=== PATIENT | male | born 1945 | race Caucasian/White ===

== ENCOUNTER 2024-05-03 09:53 | Emergency (ER) | payer MEDICARE, SELFPAY ==
--- NOTE | ~2024-05-03 | XR_ITS ---
CHEST RADIOGRAPH, PA AND LATERAL CLINICAL HISTORY: SOB,RECENT PNEUMONIA, SMOKER . COMPARISON: None available TECHNIQUE: PA and lateral views of the chest. FINDINGS The cardiomediastinal silhouette is unremarkable. Severe emphysematous disease is identified with a paucity of lung markings in the periphery and bilat eral lower lobes. No pneumothorax is appreciated. No focal infiltrate is present. Biapical scarring, right greater than left. IMPRESSION: Biapical scarring with severe emphysematous disease for which further evaluation with cross-sectional imaging would provide additional information, if the patient is clinically able (noncontrast CT exam ination of the chest) Reviewed, dictated and finalized at location A. OR VICE PRESIDENT AND CHIEF INFORMATION OFFICER IMPRESSION: Biapical scarring with severe emphysematous disease for which further evaluatio n with cross-sectional imaging would provide additional information, if the pat ient is clinically able (noncontrast CT examination of the chest)
--- NOTE | ~2024-05-03 | CT_ITS ---
EXAMINATION: CT diagnostic chest wo con DATE: 05/03/2024 13:28 INDICATION: scarring TECHNIQUE: Computed tomography (CT) of the chest was performed without intravenous contrast. Addition al 3D reconstructions utilizing coronal maximum intensity projection (MIP) were performed. Automated exposure control and iterative reconstruction technique were employed. The dose-length product was 16 2.87 mGy-cm. COMPARISON: None FINDINGS: Mild emphysema with mild biapical pleural-parenchymal scarring. Calcite pulmonary nodules in the left upper lobe and right lower lobe along with calcified right hilar lymph nodes consistent with old gra nulomatous disease. There are also a multiple scattered bilateral <4 mm pulmonary nodules predominant ly in the upper lobes. No pneumonia, pulmonary edema, pleural effusion or pneumothorax. Heart size is normal. Atherosclerotic coronary artery calcification. No pericardial effusion. Thoracic aorta is no rmal in caliber. No pathologically enlarged thoracic lymphadenopathy. Visualized upper abdomen is unr emarkable. Moderate thoracic spondylosis. IMPRESSION: 1. Mild emphysema with multiple scattered <4 mm pulmonary nodules which are most likely sequela of ol d granulomatous disease. Optional follow-up chest CT could be considered at 12 months. Reviewed, dictated and finalized at location L. L MOLDER IMPRESSION: 1. Mild emphysema with multiple scattered <4 mm pulmonary nodules which are mos t likely sequela of old granulomatous disease. Optional follow-up chest CT coul d be considered at 12 months.
[2024-05-03 10:30] VITALS: BP 173/82; PULSE 102; RESP 16; TEMP 36.8; O2SAT 98
[2024-05-03 11:44] VITALS: BP 184/95; PULSE 84; RESP 16; TEMP 36.4; O2SAT 100
[2024-05-03 12:01] VITALS: O2SAT 100
--- NOTE | 2024-05-03 12:11 | ECG_ITS ---
Test Date: 2024-05-03 12:29:50 Measurements Intervals [place] Rate: 86 P: 92 ME: 177 QRS: 69 QRSD: 81 T: 82 QT: 343 QTc: 412 Interpretive Statements SINUS RHYTHM WITH SINUS ARRHYTHMIA RIGHT ATRIAL ENLARGEMENT [0.3mV P WAVE] POSSIBLE LEFT ATRIAL ENLARGEMENT [-0.1mV P WAVE IN V1/V2] No previous ECG available for comparison Electronically Signed On 05-03-2024 14:10:32 OPENSTACK DEVELOPER by Theron Johansen M.D.
--- NOTE | 2024-05-03 12:13 | ED_ITS ---
HPI - SOB/Dyspnea General Chief Complaint: Shortness of Breath/Dyspnea Stated Complaint: recent pna, SOB Time Seen by Provider: 05/03/24 12:07 History of Present Illness HPI Narrative: Pt presents with SOB for a couple of days. Pt had pneumonia in February and got better but now more SOB. No fever positive cough. No CP. Related Data Allergies Allergy/AdvReac Type Severity Reaction Status Date / Time No Known Allergies Allergy Verified 05/03/24 09:54 Review of Systems 2 Review of Systems: All systems reviewed & are unremarkable except as noted in HPI and below Exam 2 Const: General: healthy appearing and no acute distress Nutritional Appearance: well nourished Orientation/consciousness: patient oriented x3 Limitations: no limitations HENMT: Head: normal to inspection Eyes: Pupils: Equal, round and reactive pupils present EOM: EOMs intact bilaterally Chest: Chest palpation & inspection: normal inspection of the chest Resp: Effort & Inspection: normal respiratory effort Auscultation: clear to auscultation bilaterally Cardio: Rate: regular rate Rhythm: regular rhythm GI: GI Palp: Yes Soft to palpation and No Tenderness to palpation present (GI) Auscultation: normal bowel sounds Skin: General skin exam: normal color Rashes: no rashes Wounds: no wounds Neuro: General: patient oriented x3, moves all extremities, no meningeal signs, no focal motor deficits and CN's II-XI intact bilaterally Speech: n ormal speech Extrem: General: normal to inspection and no clubbing, cyanosis or edema Psych: Mental Status: mental status grossly normal Affect: normal affect Attitude: cooperative Course Vital Signs Vital signs: Vital Signs Temperature 98.2 F 05/03/24 10:30 Pulse Rate 102 H 05/03/24 10:30 Respiratory Rate 16 05/03/24 10:30 Blood Pressure 173/82 H 05/03/24 10:30 Pulse Oximetry 98 05/03/24 10:30 Oxygen Delivery Room Air 05/03/24 10:30 Temperature 97.5 F L 05/03/24 11:44 Pulse Rate 88 05/03/24 12:45 Respiratory Rate 19 05/03/24 12:45 Blood Pressure 155/86 H 05/03/24 12:45 Pulse Oximetry 97 05/03/24 12:45 Oxygen Delivery Room Air 05/03/24 12:01 MDM - SOB/Dyspnea MDM Narrative Medical decision making narrative: Pt present with SOB for 2 days after pneumonia a col months ago. hua need to rule out acs and pneumonia again with ekg labs and cxr doubt PE could be copd exac. will give neb and solumedrol as well. Pt feels better after neb. labs and trop neg, cxr has some scarring and ct of chest confirms this but nothing acute. home on steroids aned z apck Lab Data 05/03/24 12:40 05/03/24 12:40 Labs: Lab Results 05/03/24 Range/Units 12:40 WBC 8.8 (4.5-10.0) K/mm3 RBC 5.02 (4.6-6.20) M/mm3 Hgb 15.1 (14.0-18.0) g/dL Hct 46.7 (42.0-52.0) % MCV 93.0 (80-100) fl MCH 30.1 (26-34) pg MCHC 32.3 (32-36) g/dl RDW 13.5 (11.5-14.5) % Plt Count 298 (150-375) k/mm3 MPV 8.6 (7.4-10.4) fl Immature Gran % (Auto) 0.3 (0-0.5) % Neut % (Auto) 83.3 H (45.5-73.1) % Lymph % (Auto) 7.6 L (18.3-44.2) % [place] % (Auto) 7.6 (2.6-8.5) % Eos % (Auto) 0.6 (0-4.4) % Baso % (Auto) 0.6 (0.2-1.2) % Lymph # (Auto) 0.67 L (0.9-3.2) K/mm3 [place] # (Auto) 0.7 H (0.1-0.6) K/mm3 Eos # (Auto) 0.1 (0-0.3) K/mm3 Baso # (Auto) 0.1 (0.0-0.1) K/mm3 Abs Immat Gran (auto) 0.03 (0.00-0.031) K/mm3 Absolute Neuts (auto) 7.4 H (1.3-6.7) K/mm3 Absolute Nucleated RBC 0.000 (0.0-0.012) K/mm3 Nucleated RBC % 0.0 (0.0-0.2) % PT 13.6 (11.1-14.7) Seconds INR 1.0 APTT 31.0 (22.3-36.8) Seconds Sodium 143 (137-145) mmol/L Potassium 3.9 (3.4-5.0) mmol/L Chloride 102 (98-107) mmol/L Carbon Dioxide 34 H (22-30) mmol/L Anion Gap 7 (4-12) mmol/L BUN 26 H (9-20) mg/dL Creatinine 1.11 (0.7-1.3) mg/dL Estim Creat Clear Calc 43 ml/min Estimated GFR > 60 (59 - ) Glucose 106 (65-110) mg/dL Calcium 9.6 (8.4-10.2) mg/dL Magnesium 2.3 (1.6-2.3) mg/dL Total Bilirubin 0.5 (0.2-1.3) mg/dL AST 31 (17-59) U/L ALT 23 (6-50) U/L Alkaline Phosphatase 69 (38-126) U/L Troponin I < 0.012 (0.000-0.034) ng/mL NT-Pro-B Natriuret Pep 246 H (19.9-100) pg/mL Total Protein 8.0 (6.3-8.2) g/dL Albumin 4.3 (3.5-5.1) g/dL Discharge Plan Discharge Clinical Impression: COPD exacerbation Patient Disposition: Home, Self-Care Condition: Improved Instructions: Antibiotic Form, COPD (Chronic Obstructive Pulmonary Disease) (DC) Patient Language: [place] Prescriptions: New prednisone 50 mg tablet 50 mg PO DAILY Qty: 5 0RF azithromycin [Zithromax] 250 mg tablet See Rx Instructions .ROUTE .COMPLEX Qty: 6 0RF Rx Instructions: For 250 mg dose pack: take 500 mg today (day 1), then 250 mg for 4 days (days 2-5) Follow-up/Referrals: PHYSICIAN NOT ON STAFF,NONSTAFF [Non-Staff] -
[2024-05-03] MEDS: methylPREDNISolone SOD SUCC 125 MG VIAL IV PUSH (12:30)
[2024-05-03] MEDS: IPRATROPIUM 0.5 MG/ALBUTEROL SULFATE 2.5 MG AMPUL.NEB 3 ML INHALATION ×3 (12:42)
[2024-05-03 12:43] VITALS: PULSE 85; RESP 20
[2024-05-03 12:45] VITALS: BP 155/86; PULSE 88; RESP 19; O2SAT 97
[2024-05-03 12:48] LABS: Basophils Absolute Auto 0.1 K/mm3 (0.0-0.1); Basophils Percent Auto 0.6 % (0.2-1.2); Eosinophils Absolute Auto 0.1 K/mm3 (0-0.3); Eosinophils Percent Auto 0.6 % (0-4.4); Hematocrit 46.7 % (42.0-52.0); Hemoglobin 15.1 g/dL (14.0-18.0); Immature Granulocyte Absolute 0.03 K/mm3 (0.00-0.031); Immature Granulocyte Percent A 0.3 % (0-0.5); Lymphocytes Absolute Auto 0.67 K/mm3 (0.9-3.2); Lymphocytes Percent Auto 7.6 % (18.3-44.2); Mean Corpuscular HGB Conc 32.3 g/dl (32-36); Mean Corpuscular Hemoglobin 30.1 pg (26-34); Mean Platelet Volume 8.6 fl (7.4-10.4); Monocytes Absolute Auto 0.7 K/mm3 (0.1-0.6); Monocytes Percent Auto 7.6 % (2.6-8.5); Neutrophils Absolute Auto 7.4 K/mm3 (1.3-6.7); Neutrophils Percent Auto 83.3 % (45.5-73.1); Platelet Count Result 298 k/mm3 (150-375); Red Blood Count 5.02 M/mm3 (4.6-6.20); Red Cell Distribution Width 13.5 % (11.5-14.5); White Blood Count 8.8 K/mm3 (4.5-10.0)
[2024-05-03 12:57] LABS: Prothrombin Time 13.6 Seconds (11.1-14.7)
[2024-05-03 13:11] LABS: Alanine Aminotransferase 23 U/L (6-50); Albumin Level 4.3 g/dL (3.5-5.1); Alkaline Phosphatase 69 U/L (38-126); Anion Gap 7 mmol/L (4-12); Aspartate Amino Transferase 31 U/L (17-59); Bilirubin,Total 0.5 mg/dL (0.2-1.3); Blood Urea Nitrogen 26 mg/dL (9-20); Calcium 9.6 mg/dL (8.4-10.2); Carbon Dioxide 34 mmol/L (22-30); Chloride 102 mmol/L (98-107); Estimated CRCL calculation 43 ml/min; Estimated Glomerular Filt Rate > 60; Glucose 106 mg/dL (65-110); Magnesium 2.3 mg/dL (1.6-2.3); NT Pro B Type Natriuretic Pept 246 pg/mL (19.9-100); Potassium 3.9 mmol/L (3.4-5.0); Sodium 143 mmol/L (137-145)
[2024-05-03 13:12] LABS: Troponin I < 0.012 ng/mL (0.000-0.034)
--- OUTSIDE RECORDS SUMMARY | 2024-05-03 14:53 | XMS_ITS ---
Author Organization [facility] A Address [address] [address] Care Team Providers Care Fashion Merchandiser Name Role Phone Magalys Fernando Primary Care Provider Unavailabl e JAY AZUL Unavailable [phone] Martínez Ramires Unavailable Unavailable Encounters Encounter Location Date Provider Diagnosis [facility] [address] [place] [phone] 04/06/2024 JAY AZUL PLAN OF TREATMENT No Information Progress Notes * BRIGIDA HILLDOB: 5 (78 yo M)Acc No.[id number]:04/06/2024 Patient: HILLBRIGIDA :1945 Age:78 Y Sex:Male Address:[address] [place] [address], [phone] * true * Date:
--- OUTSIDE RECORDS SUMMARY | 2024-05-03 14:54 | XMS_ITS ---
Author Organization [facility] Address [address] [address] Care Team Providers Care Freight Car Loader Name Role Phone Kassie Magalys Primary Care Provider UnavailJAY Zamora Unavailable [phone] Martínez Ramires Unavailable Unavailable REASON FOR VISIT Follow up Dementia MEDICATIONS Medication SIG (Take, Route, Frequency, Duration) Notes Start Date End Date Status Albuterol Sulfate HFA 108 (90 Base) MCG/ACT INHALE 2 PUFFS BY MOUTH EVERY 4 HOURS NEEDED Inhalation Active LORazepam 0.5 MG 1 tablet at bedtime as needed Orally Once a day for 14 day(s) Active amLODIPine Besylate 2.5 MG Oral Active Vitamin D-3 25 MCG (1000 UT) 1 capsule Orally once a week for 30 day(s) Active C68-Ioneuh 1 MG as directed Orally Active Tamsulosin HCl 0.4 MG Oral Once a day fo r 90 Days Active VITAL SIGNS Height 5 ft 11 in in 04/10/2024 Heart Rate 92 /min 04/10/2024 Respiratory Rate 18 /min 04/10/2024 Temperature 97.4 degrees Fahrenheit 04/10/19 25 Oximetry 98 % 04/10/2024 Blood pressure systolic 136 mm Hg 04/10/19 25 Blood pressure diastolic 70 mm Hg 025 Encounters Encounter Location Date Provider Diagnosis [facility] [address] [facility] [address] 04/10/2024 JAY AZUL Dementia F03.90 and Encounter for palliative care Z51.5 ASSESSMENTS Encounter Date Diagnosis Assessment Notes Treatment Notes Treatment Clinical Notes Section Notes 04/10/2024 Dementia (ICD-10 - F03.90) Continue to monitor for decline in cognitive status and functional status. FAST 5 04/10/2024 Encounter for palliative care (ICD-10 - Z51.5) PPS 40% Full code Continue palliative care and monitoring for change of status and appropriateness for hospice services. Nurse practitioner to follow up in 1 month and PRN. PLAN OF TREATMENT Medication Medication Name Sig Start Date Stop Date Notes LORazepam 0.5 MG 1 tablet at bedtime as needed Orally Once a day for 14 day(s) Treatment Notes Assessment Notes Dementia Continue to monitor for decline in cognitive status and functional status. FAST 5 Encounter for palliative care PPS 40% Full code Continue palliative care and monitoring for change of status and appropriateness for hospice services. Nurse practitioner to follow up in 1 month and PRN. Next Appt Details Follow Up: 4 Weeks, Reason: Dementia Progress Notes * BRIGIDA HILLDOB: 5 (78 yo M)Acc No.[id number]:04/10/2024 Progress Notes Patient: BRIGIDA HILL Provider: JAY AZUL APN :1945 Age:78 Y Sex:Male Date:04/10/2024 Address:[address] [place], [place] [id number] Pcp:Magalys Fernando Subjective: * Chief Complaints: * Follow up Dementia * HPI: Palliative Care: Follow Up Visit 78 year-old white male presenting for palliative care follow up. Seen in his home.Patient states he feels well today. He remains to be pleasantly confused most of the time. He is alert and oriented to person and place. Patient denies pain, recent falls. Continues to have a good appetite. Spoke with patients daughter and she has no concerns about cognition decline and feels that he is stable. S he does report that she is looking for [facility] PCP as she does not feel that the one that he was recently transferred to was&rdquo;on the same page with her&rdquo; Patient had a bout of pneumonia about 1 month ago and she states that he recovered well with course of antibiotics but now the provider is sending him to a quantitative developer that wants to do a battery of imaging and tests. She states that she is not sure if she wants to move forward as her father&rsquo;s health would not be comparable with treatments needed &ldquo;if anything was found&rdquo;. She is also not sure why he needs these tests if the pneumonia cleared without issue. Advised daughter to make the decision that she feels appropriate for her father as she is the POA. . Advance care planning Full code. Daughter, Jodi Ames, is medical POA. POLST form completed previous visit. D iscussed again this visit and no changes made to status. . * ROS: General/Constitutional: Patient endorses stable weight and appetite. Ophthalmologic: Patient Denies change in vision. ENT: Patient Denies decreased hearing, difficulty swallowing, pain. Respiratory: Patient Denies shortness of breath, cough. Cardiovascular: Patient Denies chest pain, dyspnea on exertion, dizziness. Gastrointestinal: Patient Denies abdominal pain, difficulty swallowing, weight loss, decreased appetite. Genitourinary: Patient Denies difficulty urinating. Musculoskeletal: Patient Denies arthritis, back problems, painful joints. Skin: Patient Denies wounds. Neurologic: Patient Endorses memory loss. Psychiatric: Patient Denies depressed mood. . * Medical History: * Surgical History: tonsillectomy and adenoidectomy * Hospitalization/Major Diagno stic Procedure: Unplanned - Syncopal Episode 01/2022 * Family History: 1 son(s) , 1 daughter(s) - healthy. . * Medications: TakingLORazepam 0.5 MG Tablet 1 tablet at bedtime as needed Orally Once a day Albuterol Sulfate HFA 108 (90 Base) MCG/ACT Aerosol Solution INHALE 2 PUFFS BY MOUTH EVERY 4 HOURS NEEDED Inhalation Tamsulosin HCl 0.4 MG Capsule Oral Once a day P51-Zcseff 1 MG Tablet Chewable as directed Orally Vitamin D-3 25 MCG (1000 UT) Capsule 1 capsule Orally once a week amLODIPine Besylate 2.5 MG Tablet Oral Medication List reviewed and reconciled with the patientTaking LORazepam 0.5 MG Tablet 1 tablet at bedtime as needed Orally Once a day Taking Albuterol Sulfate HFA 108 (90 Base) MCG/ACT Aerosol Solution INHALE 2 PUFFS BY MOUTH EVERY 4 HOURS NEEDED Inhalation Taking Tamsulosin HCl 0.4 MG Capsule Oral Once a day Taking H70-Cghjhg 1 MG Tablet Chewable as directed Orally Taking Vitamin D-3 25 MCG (1000 UT) Capsule 1 capsule Orally once a week Taking amLODIPine Besylate 2.5 MG Tablet Oral Medication List reviewed and reconciled with the patient * Allergies: no[Allergies Verified] Objective: * Vitals: BP:136/70mm Hg, HR:92/min, RR:18/min, Temp:97.4F, Oxygen sat %:98%, PPS:40%, Pain scale:00-10, PX:>12, FAST:5, Ht:5 ft 11 in. * Examination: General Examination: GENERAL APPEARANCE: pleasant, well nourished, in no acute distress. DISTRESS: None. PSYCH: Oriented to person and place. Forgetful. Disoriented to time.. ENMT: Poor Dentition missing teeth. CV: WNL. RESP: WNL, no wheezes, rales, rhonchi, even and unlabored, clear to auscultation bilaterally. : WNL. MUSCULOSKELETAL: WNL Wrist circumference 6.24 inch (right) 6.5 inch( left). SKIN: WNL. NEUROLOGIC: alert and oriented to person and place. Forgetful. Disoriented to time.. EXTREMITIES: no edema, normal. Assessment: * Assessment: 1. Dementia - F03.90 (Primary) 2. Encounter for palliative care - Z51.5 Plan: * Treatment: 2. Encounter for palliative care Notes: PPS 40% Full code Continue palliative care and monitoring for change of status and appropriateness for hospice services. Nurse practitioner to follow up in 1 month and PRN. * Procedure Codes: G8734 ELDER MALTX SCR DOC NEG NO F/U RQR * Preventive Medicine: Screenings: Falls Risk Screening: No falls in the past year, Assessment: Performed, Balance-gait assessment: Observed transfer and walking. Advance Care Planning Date of last Advance Care Plannin01/12/2023. Elder Maltreatment Type of tool(s) used EAI, Findings of Screening Negative. Pain Assessment Follow up Follow Up plan discussed No, Reason: Patient not eligible candidate, Pain Assessment not documented: Patient not eligible No pain. Tobacco Use Patient counselled on the dangers of tobacco use and urged to quit. 11/04/2023. Dementia Caregiver education and support provided Yes. * Follow Up: 4 Weeks (Reason: Dementia) Care Plan: * Problems: * Billing Information: * Visit Code: 34756 Subsequent Home Care 2 (30 mins). [id number] ACP Documented - Non-billable. * Procedure Codes: G8734 ELDER MALTX SCR DOC NEG NO F/U RQR. Care Plan Details* * Sign off status: Completed true * Provider: JAY AZUL APN Date: 04/10/2024 History and Physical Notes * HPI (History of Present Illness) Category Sub-Category Detail Notes Category Not es Palliative Care Advance care planning Full code. Daughter, Jodi Ames, is medical POA. POLST form completed previous visit. Discussed again this visit and no changes made to status. Follow Up Visit 78 year-old white male presenting for palliative care follow up. Seen in his home.Patient states he feels well today. He remains to be pleasantly confused most of the time. He is alert and oriented to person and place. Patient denies pain, recent falls. Continues to have a good appetite. Spoke with patients daughter and she has no concerns about cognition decline and feels that he is stable. She does report that she is looking for [facility] PCP as she does not feel that the one that he was recently transferred to was on the same page with her Patient had a bout of pneumonia about 1 month ago and she states that he recovered well with course of antibiotics but now the provider is sending him to a quantitative developer that wants to do a battery of imaging and tests. She states that she is not sure if she wants to move forward as her father's health would not be comparable with treatments needed if anything was found . She is also not sure why he needs these tests if the pneumonia cleared without issue. Advised daughter to make the decision that she feels appropriate for her father as she is the POA. Examination Category Sub-Category Detail Notes Category Not es General Examination GENERAL APPEARANCE: pleasant , well nourished, in no acute distress ENMT: Poor Dentition joaquin ng teeth CV: WNL RESP: WNL, no wheezes, ral es, rhonchi, even and unlabored, clear to auscultation bilaterally NEUROLOGIC: alert and oriented t o person and place. Forgetful. Disoriented to time. SKIN: WNL EXTREMITIES: no edema, normal MUSCULOSKELETAL: WNL Wrist circumference 6.24 inch (right) 6.5 inch( left) PSYCH: Oriented to person a nd place. Forgetful. Disoriented to time. DISTRESS: None : WNL
--- OUTSIDE RECORDS SUMMARY | 2024-05-03 14:54 | XMS_ITS ---
Author Organization [facility] Address [address] [address] Care Team Providers Care Ecosystem Ecology Professor Name Role Phone Magalys Fernando Primary Care Provider Unavailabl e JAY AZUL Unavailable [phone] Martínez Ramires Unavailable Unavailable Encounters Encounter Location Date Provider Diagnosis [facility] [address] [place] [phone] 04/06/2024 JAY AZUL PLAN OF TREATMENT No Information Progress Notes * BRIGIDA HILLDOB: [birth year] (78 yo M)Acc No.[id number]:04/06/2024 Patient: HILLBRIGIDA :1945 Age:78 Y Sex:Male Address:[address] [place] [address], [phone] * true * Date:
--- OUTSIDE RECORDS SUMMARY | 2024-05-03 14:54 | XMS_ITS | Patient Health Record ---
Author Organization [facility] Address [address] [address] Care Team Providers Care Gambling Counsellor Name Role Phone JmMagalys landers Primary Care Provider UnavailJAY Zamora Unavailable [phone] Martínez Ramires Unavailable Unavailable CARMEN NUNEZ Unavailable [phone] REASON FOR REFERRAL No Information MEDICATIONS Medication SIG (Take, Route, Frequency, Duration) [...] once a week for 30 day(s) Active F60-Pbekud 1 MG as directed Orally Active Tamsulosin HCl 0.4 MG Oral Once a day fo r 90 Days Active SOCIAL HISTORY Tobacco Use: Social History Observation Description Date Details (start date - stop date) Current Smoker 02/28/1955 - NA Sex Assigned At : Social History Observation Description Sex Assigned At Unknown Tobacco Use/Smoking Question Answer Notes Are you a current smoker When did you start smoking? 02/28/1955 How often do you smoke cigarettes? every day How many cigarettes a day do you smoke? 5 or les s How soon after you wake up do you smoke your fir st cigarette? 31-60 minutes Are you interested in quitting? Not ready to tg t Additional Findings: Tobacco User e-Cigarette PROBLEMS Problem Type ICD Code Onset Dates Problem Status W/U Status Risk SNOMED Code Notes Problem Essential hypertension (I10) Active confirmed 76215060 Problem Dementia (F03.90) Active confirmed Dementia (92689250) Problem Chronic obstructive pulmonary disease (COPD) (J44.9) Active confirmed Chronic obstructive pulmonary disease (24679748) Problem COPD without exacerbation (J44.9) Active confirmed Chronic obstructive lung disease (62390282) VITAL SIGNS Heart Rate 92 /min 04/10/2024 Temperature 97.4 degrees Fahrenheit 04/10/2024 Respiratory Rate 18 /min 04/10/2024 Oximetry 98 % 04/10/2024 Blood pressure diastolic 70 mm Hg 04/10/2024 Height 5 ft 11 in in 04/10/2024 Blood pressure systolic 136 mm Hg 04/10/2024 Encounters Encounter Location Date Provider Diagnosis [facility] [address] [address] 09/23/2023 CARMEN NUNEZ [facility] [address] [address] 07/05/2023 CARMEN MAYRA Dementia F03.90 ; Encounter for palliative care Z51.5 and Healing wound T14.90XD [facility] [address] [address] 08/04/2023 CARMEN MAYRA Dementia F03.90 and Encounter for palliative care Z51.5 [place] [address] [address] 10/03/2023 JAY LATHA Dementia F03.90 ; Encounter for palliative care Z51.5 and Essential hypertension I10 [place] [address] [address] 11/04/2023 JAY LATHA Dementia F03.90 ; Encounter for palliative care Z51.5 ; Essential hypertension I10 and COPD without exacerbation J44.9 [facility] [address] [address] 11/28/2023 JAY LATHA Dementia F03.90 ; Encounter for palliative care Z51.5 ; Essential hypertension I10 and COPD without exacerbation J44.9 [facility] [address] [address] 12/26/2023 JAY LATHA Dementia F03.90 ; Encounter for palliative care Z51.5 ; Essential hypertension I10 and COPD without exacerbation J44.9 [facility] [address] [address] 02/02/2024 CARMEN CHAVEZERT Dementia F03.90 and Encounter for palliative care Z51.5 [facility] [address] [address] 02/16/2024 CARMEN CHAVEZERT Dementia F03.90 and Encounter for palliative care Z51.5 [facility] [address] [address] 04/10/2024 JAY LATHA Dementia F03.90 and Encounter for palliative care Z51.5 [facility] [address] [place] [address] 04/06/2024 JAY LATHA [facility] [address] [place] [address] 04/06/2024 JAY LATHA ASSESSMENTS Encounter Date Diagnosis Assessment Notes Treatment Notes Treatment Clinical Notes Section Notes 07/05/2023 Dementia (ICD-10 - F03.90) Continue to monitor for decline. Reinforced fall precautions. 08/04/2023 Dementia (ICD-10 - F03.90) Continue to monitor for decline. Reinforced fall precautions. Reinforced fall precautions related to animals in-home as well 10/03/2023 Dementia (ICD-10 - F03.90) Continue to monitor for decline. Reinforced fall precautions.Follow up in 1 month 11/04/2023 Dementia (ICD-10 - F03.90) Continue to monitor for decline. Discussed with son getting support from his siblings. We discussed the progressive nature of dementia. We also discussed getting helped from division of aging. He will also reach out to his primary care provider to see if he can get a PRN medication for the agitation. Follow up in 1 month or sooner. 11/28/2023 Dementia (ICD-10 - F03.90) Continue to monitor for decline. Discussed with son getting support from his siblings. We discussed the progressive nature of dementia. We also discussed getting helped from division of aging. He will also reach out to his primary care provider to see if he can get a PRN medication for the agitation. Follow up in 1 month or sooner. 12/26/2023 Dementia (ICD-10 - F03.90) Continue to monitor for decline. Discussed with son getting support from his siblings. We discussed the progressive nature of dementia. We also discussed getting helped from division of aging. He will also reach out to his primary care provider to see if he can get a PRN medication for the agitation. Follow up in 1 month or sooner. 02/02/2024 Dementia (ICD-10 - F03.90) Trial Ativan 0.5 mg at bedtime as needed for agitation, anxiety. Nurse practitioner to follow up in two weeks to reassess. Nurse practitioner reinforced fall precautions and increased risk of falls with Ativan use. Continue to monitor for decline in cognitive status and functional status. FAST 02/16/2024 Dementia (ICD-10 - F03.90) Son states patient has not used Ativan since nurse practitioner prescribed at last visit. He states he did have one episode of agitation, but was not given Ativan. Continue to monitor for decline in cognitive status and functional status. FAST 04/10/2024 Dementia (ICD-10 - F03.90) Continue to monitor for decline in cognitive status and functional status. FAST 5 04/10/2024 Encounter for palliative care (ICD-10 - Z51.5) PPS 40% Full code Continue palliative care and monitoring for change of status and appropriateness for hospice services. Nurse practitioner to follow up in 1 month and PRN. 02/16/2024 Encounter for palliative care (ICD-10 - Z51.5) PPS 40% Full code Continue palliative care and monitoring for change of status and appropriateness for hospice services. Nurse practitioner to follow up in 1 month and PRN. 08/04/2023 Encounter for palliative care (ICD-10 - Z51.5) PPS 40% Full code Continue palliative care and monitoring for change of status and appropriateness for hospice services. Nurse practitioner to follow up in 1 month and PRN. 02/02/2024 Encounter for palliative care (ICD-10 - Z51.5) PPS 40% Full code Continue palliative care and monitoring for change of status and appropriateness for hospice services. Nurse practitioner to follow up in 1 month and PRN. 12/26/2023 Encounter for palliative care (ICD-10 - Z51.5) PPS 40% Full code Continue palliative care and monitoring for change of status and appropriateness for hospice services. Nurse practitioner to follow up in 1 month and PRN. 11/28/2023 Encounter for palliative care (ICD-10 - Z51.5) PPS 40% Full code Continue palliative care and monitoring for change of status and appropriateness for hospice services. Nurse practitioner to follow up in 1 month and PRN. 11/04/2023 Encounter for palliative care (ICD-10 - Z51.5) PPS 40% Full code Continue palliative care and monitoring for change of status and appropriateness for hospice services. Nurse practitioner to follow up in 1 month and PRN. 10/03/2023 Encounter for palliative care (ICD-10 - Z51.5) PPS 40% Full code Continue palliative care and monitoring for change of status and appropriateness for hospice services. Nurse practitioner to follow up in 1 month and PRN. 07/05/2023 Encounter for palliative care (ICD-10 - Z51.5) PPS 40% Full code Continue palliative care and monitoring for change of status and appropriateness for hospice services. Nurse practitioner to follow up in 1 month and PRN. 07/05/2023 Healing wound (ICD-10 - T14.90XD) Wash wounds with soap and water one to two times daily. Pat dry. May keep wounds open to air. Monitor for signs and symptoms of infection, such as redness, warmth, purulent drainage. 10/03/2023 Essential hypertension (ICD-10 - I10) Blood pressure slightly elevated today. Encouraged low salt diet. 11/04/2023 Essential hypertension (ICD-10 - I10) Blood pressure slightly elevated today. Encouraged low salt diet. 11/28/2023 Essential hypertension (ICD-10 - I10) Encouraged low salt diet. 12/26/2023 Essential hypertension (ICD-10 - I10) Encouraged low salt diet. 11/28/2023 COPD without exacerbation (ICD-10 - J44.9) 11/04/2023 COPD without exacerbation (ICD-10 - J44.9) 12/26/2023 COPD without exacerbation (ICD-10 - J44.9) Encourage to stop to stop vaping. Continue albuterol use as needed. 07/05/2023 Other 08/04/2023 Other 02/02/2024 Other PLAN OF TREATMENT No Information Insurance Providers Payer Name Payer Address Payer Phone Subscriber Number Group Number Insured Name Patient Relationship to Insured Coverage Start Date Coverage End Date [place] [address] [address] [place] [address] [phone] [id number] [place] Self - patient is the insured A[employer] Medicare Advantage [address] [address] [place] [address] [id number] [place] BRIG[place] Self - patient is the insured MEDICAL (GENERAL) HISTORY Medical History History ICD Code Chronic obstructive pulmonary disease (C OPD) J44.9 Dementia F03.90 Essential hypertension I10 Tremors of nervous system R25.1 Surgical History Surgery Date(Month/Year) tonsillectomy and adenoidectomy Hospitalization History Reason Date(Month/Year) Unplanned - Syncopal Episode 01/2022
--- OUTSIDE RECORDS SUMMARY | 2024-05-03 14:54 | XMS_ITS | CONTINUITY OF CARE DOCUMENT ---
Author Name [email or web address] Address Unknown Organization [facility] Address [address] [place] [address] Phone [phone] Care Team Providers Care American History Professor Name Role Phone Yo Navarrete MD Unavailable [phone] Yo Navarrete MD Unavailable [phone] INSURANCE PROVIDERS Payer name Policy type / Coverage type [place] red green party ID AARP Commercial insurance company AARP Commercial insurance company AARP Commercial insurance company [facility] Commercial insurance company [place] Medicare [id number]
== END 2024-05-03 14:47 | disposition home or self-care (01) ==
PROVIDERS: Emergency Provider Emergency Medicine
DX: J44.1 Chronic obstructive pulmonary disease with (acute) exacerbation (principal); Z87.01 Personal history of pneumonia (recurrent)
CPT/HCPCS: 36415; 71046; 71250; 80053; 83735; 83880; 84484; 85025; 85610; 85730; 93005; 94640; 96374; 99284; J2919